=== PATIENT | male | born 1990 | race Caucasian/White ===

== ENCOUNTER 2017-07-13 18:38 | Inpatient (IN) | payer OTHER ==
[~2017-07-13] VITALS: Ht 190.5 cm; Wt 75.4 kg
[2017-07-13] MEDS ORDERED: MORPHINE SULFATE 4 MG/ML, 1ML ONE (18:56)
[2017-07-13] MEDS ORDERED: MAALOX/HYOSCYAMINE/LIDOCAINE 45 ML BTL ONE (18:56)
[2017-07-13] MEDS ORDERED: PROMETHAZINE 25 MG/ML, 1ML ONE (18:56)
[2017-07-13] MEDS ORDERED: FAMOTIDINE 20 MG/2 ML ONE (18:56)
[2017-07-13] MEDS ORDERED: SODIUM CHLORIDE 0.9% 1,000ML IVBOLUS ONE (19:00)
[2017-07-13] MEDS ORDERED: FAMOTIDINE 20 MG/2 ML IVP ONE (19:00)
[2017-07-13] MEDS ORDERED: MORPHINE SULFATE 4 MG/ML, 1ML IVPush PRN (19:00)
[2017-07-13] MEDS ORDERED: MAALOX/HYOSCYAMINE/LIDOCAINE 45 ML BTL PO ONE (19:00)
[2017-07-13] MEDS ORDERED: PROMETHAZINE 25 MG/ML, 1ML IM ONE (19:00)
[2017-07-13] MEDS ORDERED: SODIUM CHLORIDE FLUSH 10ML SYR IVF ONE (19:00)
[2017-07-13 19:11] LABS: BASOPHILS # (AUTO) 0.07 x10^3/uL (0-0.1); BASOPHILS % (AUTO) 1 % (0-1); EOSINOPHILS # (AUTO) 0.07 x10^3/uL (0-0.4); EOSINOPHILS % (AUTO) 1 % (1-7); LYMPHOCYTES # (AUTO) 1.33 x10^3/uL (1-3.4); LYMPHOCYTES % (AUTO) 14 % (22-44); MD NO; MEAN CORPUSCULAR HEMOGLOBIN 32.2 pg (27.5-34.5); MEAN CORPUSCULAR HGB CONC 34.2 g/dL (33.2-36.2); MEAN CORPUSCULAR VOLUME 94.2 fL (81-97); MEAN PLATELET VOLUME 9.7 fL (7.4-10.4); MONOCYTES # (AUTO) 0.57 x10^3/uL (0.2-0.8); MONOCYTES % (AUTO) 6 % (2-9); NEUTROPHILS # (AUTO) 7.37 x10^3/uL (1.8-6.8); NEUTROPHILS % (AUTO) 78 % (42-75); PLATELET COUNT 222 x10^3/uL (130-400); RED BLOOD COUNT 4.97 x10^6/uL (4.38-5.82); RED CELL DISTRIBUTION WIDTH 12.5 % (9.4-14.8)
[2017-07-13 19:23] LABS: ALANINE AMINOTRANSFERASE 17 U/L (12-78); ALBUMIN 3.3 g/dL (3.4-5.0); ANION GAP 11 mmol/L (5-15); CALCIUM 8.8 mg/dL (8.5-10.1); CHLORIDE 108 mmol/L (98-107); CREATININE 1.01 mg/dL (0.7-1.3)
[2017-07-13 19:25] LABS: ALKALINE PHOSPHATASE 55 U/L (45-117); BILIRUBIN,TOTAL 0.6 mg/dL (0.2-1.0); TOTAL PROTEIN 6.6 g/dL (6.4-8.2)
[2017-07-13] MEDS ORDERED: OMNIPAQUE 350 MG/ML, 100ML BOTTLE ONE (20:44)
[2017-07-13] MEDS ORDERED: POTASSIUM CHLORIDE 40 MEQ in D5%-LACTATED RINGERS 1,000 ML IV SCH (21:30)
[2017-07-13] MEDS ORDERED: METOCLOPRAMIDE 5 MG/ML, 2ML IVPush PRN (22:00)
[2017-07-13] MEDS ORDERED: PROMETHAZINE 25 MG/ML, 1ML IM PRN (22:00)
[2017-07-13] MEDS ORDERED: morphine SULFATE 10 MG/ML, 1ML IVPush PRN (22:00)
[2017-07-13] MEDS: ENOXAPARIN 40 MG/0.4 ML SQ SCH (22:00)
[2017-07-13] MEDS ORDERED: DOCUSATE 100 MG CAPSULE PO PRN (22:00)
[2017-07-13] MEDS ORDERED: ACETAMINOPHEN 325 MG TABLET PO PRN (22:00)
[2017-07-13] MEDS ORDERED: OXYcodone IR 5MG TABLET PO PRN (22:00)
[2017-07-13] MEDS ORDERED: ONDANSETRON 2MG/ML, 2ML IVPush PRN (22:00)
[2017-07-13] MEDS: D5%-0.45NACL+KCL 20MEQ 1,000 ML IV SCH (23:01)
[2017-07-13] MEDS: TOLNAFTATE 1% TP SCH (23:02)
[2017-07-13 23:08] VITALS: BP 119/70
[2017-07-14 05:23] VITALS: BP 116/46
[2017-07-14 05:25] LABS: ANION GAP 7 mmol/L (5-15); CALCIUM 7.7 mg/dL (8.5-10.1); CHLORIDE 111 mmol/L (98-107); CHOLESTEROL, TOTAL 72 mg/dL (140-239); CREATININE 0.82 mg/dL (0.7-1.3); TRIGLYCERIDES 42 mg/dL (50-200); VLDL CHOLESTEROL 8 mg/dL (0-25)
[2017-07-14 05:31] LABS: CHOL/HDL RATIO 1.7; HDL CHOL % 60 % (26-37); HDL CHOLESTEROL (DIRECT) 43 mg/dL (40-60); LDL CHOLESTEROL,CALCULATED 21 mg/dL (54-169); LDL/HDL RATIO 0.5 (0.5-3.0); PREALBUMIN 12.9 mg/dL (20.0-40.0)
[2017-07-14 07:18] VITALS: BP 110/56
[2017-07-14] MEDS: TOLNAFTATE 1% TP SCH ×2 (09:00→20:20)
[2017-07-14] MEDS: FAMOTIDINE 20 MG/2 ML IVPush SCH ×2 (11:39→20:20)
[2017-07-14] MEDS: D5%-0.45NACL+KCL 20MEQ 1,000 ML IV SCH (11:39)
[2017-07-14 14:00] VITALS: BP 131/79
[2017-07-14 18:41] VITALS: BP 110/67
[2017-07-14] MEDS: CALCIUM CARBONATE 500 MG TABLET PO SCH (20:20)
[2017-07-14] MEDS: ENOXAPARIN 40 MG/0.4 ML SQ SCH (22:26)
[2017-07-15 01:22] VITALS: BP 118/69
[2017-07-15 04:55] LABS: BASOPHILS # (AUTO) 0.07 x10^3/uL (0-0.1); BASOPHILS % (AUTO) 1 % (0-1); EOSINOPHILS # (AUTO) 0.19 x10^3/uL (0-0.4); EOSINOPHILS % (AUTO) 2 % (1-7); LYMPHOCYTES # (AUTO) 2.33 x10^3/uL (1-3.4); LYMPHOCYTES % (AUTO) 28 % (22-44); MD NO; MEAN CORPUSCULAR HEMOGLOBIN 32.1 pg (27.5-34.5); MEAN CORPUSCULAR HGB CONC 33.8 g/dL (33.2-36.2); MEAN PLATELET VOLUME 10.1 fL (7.4-10.4); MONOCYTES # (AUTO) 0.68 x10^3/uL (0.2-0.8); MONOCYTES % (AUTO) 8 % (2-9); NEUTROPHILS # (AUTO) 4.95 x10^3/uL (1.8-6.8); NEUTROPHILS % (AUTO) 60 % (42-75); PLATELET COUNT 245 x10^3/uL (130-400); RED BLOOD COUNT 4.91 x10^6/uL (4.38-5.82); RED CELL DISTRIBUTION WIDTH 12.8 % (9.4-14.8)
[2017-07-15 05:05] LABS: ALBUMIN 2.9 g/dL (3.4-5.0); ANION GAP 6 mmol/L (5-15); CALCIUM 8.5 mg/dL (8.5-10.1); CHLORIDE 104 mmol/L (98-107)
[2017-07-15 05:08] LABS: ALANINE AMINOTRANSFERASE 16 U/L (12-78); ALKALINE PHOSPHATASE 53 U/L (45-117); BILIRUBIN,TOTAL 0.3 mg/dL (0.2-1.0); CREATININE 0.97 mg/dL (0.7-1.3); TOTAL PROTEIN 6.2 g/dL (6.4-8.2)
[2017-07-15 07:07] VITALS: BP 105/66
[2017-07-15] MEDS: FAMOTIDINE 20 MG/2 ML IVPush SCH (09:00)
[2017-07-15] MEDS: CALCIUM CARBONATE 500 MG TABLET PO SCH (09:00)
[2017-07-15] MEDS: TOLNAFTATE 1% TP SCH (09:00)
[2017-07-15 13:54] VITALS: BP 108/61
[2017-07-15] MEDS ORDERED: FAMOTIDINE 20 MG TABLET PO SCH ×2 (13:54→21:00)
== END 2017-07-15 17:40 | disposition home or self-care (01) | DRG 393 ==
LOC: ED 20:01 → EDIP 21:25 → SUATTDRO 21:30 → 3NE 22:00
PROVIDERS: ADMIT Family Medicine; ATTEND Family Medicine
DX: K55.1 Chronic vascular disorders of intestine (principal); K85.90 Acute pancreatitis without necrosis or infection, unspecified; E44.0 Moderate protein-calorie malnutrition; R74.8 Abnormal levels of other serum enzymes; E83.51 Hypocalcemia; Z68.20 Body mass index [BMI] 20.0-20.9, adult
CPT/HCPCS: 36415; 74177; 76705; 80048; 80053; 80061; 83690; 83735; 84100; 84134; 85025; 96361; 96374; 96375; Q9967; J2270; J3480; J7030; S0028

== ENCOUNTER 2020-06-24 03:45 | Emergency (ER) | payer SELFPAY ==
[~2020-06-24] VITALS: Ht 185.4 cm; Wt 94.1 kg
[2020-06-24] MEDS ORDERED: ONDANSETRON 2MG/ML, 2ML IVPush ONE (05:00)
[2020-06-24] MEDS ORDERED: MAALOX/HYOSCYAMINE/LIDOCAINE 45 ML BTL PO ONE (05:00)
[2020-06-24] MEDS ORDERED: MAALOX/HYOSCYAMINE/LIDOCAINE 45 ML BTL ONE (05:02)
[2020-06-24] MEDS ORDERED: ONDANSETRON ODT 4 MG ONE (05:02)
--- NOTE | 2020-06-24 05:15 | NUR ---
PT SLEEPING IN BED WITH NO COMPLAINTS, AWARE OF NEED FOR URINE, VSS
[2020-06-24 05:16] LABS: BASOPHILS % (AUTO) 1 % (0-1); EOSINOPHILS % (AUTO) 2 % (1-7); LYMPHOCYTES % (AUTO) 32 % (22-44); MEAN CORPUSCULAR HEMOGLOBIN 32.3 pg (27.5-34.5); MEAN CORPUSCULAR HGB CONC 34.3 g/dL (33.2-36.2); MEAN PLATELET VOLUME 8.8 fL (7.4-10.4); MONOCYTES % (AUTO) 9 % (2-9); NEUTROPHILS % (AUTO) 57 % (42-75); PLATELET COUNT 230 x10^3/uL (130-400); RED BLOOD COUNT 4.62 x10^6/uL (4.38-5.82); RED CELL DISTRIBUTION WIDTH 12.6 % (9.4-14.8)
[2020-06-24 05:17] LABS: MD NO
[2020-06-24 05:30] LABS: ALBUMIN 3.8 g/dL (3.4-5.0); ANION GAP 5 mmol/L (5-15); CALCIUM 8.2 mg/dL (8.5-10.1); CHLORIDE 111 mmol/L (98-107)
[2020-06-24] MEDS ORDERED: ONDANSETRON ODT 4 MG PO ONE (05:30)
[2020-06-24 05:33] LABS: ALANINE AMINOTRANSFERASE 17 U/L (12-78); ALKALINE PHOSPHATASE 53 U/L (45-117); BILIRUBIN,TOTAL 0.2 mg/dL (0.2-1.0); CREATININE 0.86 mg/dL (0.7-1.3); TOTAL PROTEIN 6.5 g/dL (6.4-8.2)
--- NOTE | 2020-06-24 06:07 | NUR ---
PT SLEEPING SOUNDLY, ROUSABLE TO VOICE, VSS, NOTIFIED AGAIN OF NEED FOR URINE
[2020-06-24 07:29] VITALS: BP 112/61
--- NOTE | 2020-06-24 07:30 | NUR ---
Patient given discharge instructions and they have confirmed that they understand the instructions. Patient ambulatory with steady gait.
== END 2020-06-24 07:30 | disposition home or self-care (01) ==
LOC: ED 05:38
DX: F15.129 Other stimulant abuse with intoxication, unspecified (principal); R10.13 Epigastric pain; F17.210 Nicotine dependence, cigarettes, uncomplicated
CPT/HCPCS: 36415; 80053; 80320; 83690; 85025; 99283; Q0162; G0480